=== PATIENT | male | born 1995 | race Caucasian/White ===

== ENCOUNTER 2024-04-13 10:43 | Outpatient (CLI) | payer OTHER, SELFPAY ==
--- NOTE | 2024-04-19 12:12 | WPDHOLTEREM ---
Holter/Event Monitor Holter/Event Monitor Date of procedure: 04/13/24 Holter/Event Procedure: 3-7 Day Holter Monitor Indications: Syncope Conclusion: 1. 3 days holter monitor on 04/13/24. 2. Underlying rhythm is sinus rhythm. HR range 46-162 bpm; average HR 80 bpm. HR at 46 bpm on 04/15/24 5:01 am. 3. There are rare premature supraventricular complexes, rare supraventricular couplets, and rare supraventricular triplets. No supraventricular tachycardia. 4. There are rare premature ventricular complexes. No ventricular tachycardia. 5. No significant pauses greater than 3 seconds. 6. No symptoms available for correlation.
== END 2024-04-13 10:44 | disposition home or self-care (01) ==
PROVIDERS: PCP Pediatrics; Visit Provider Family Medicine
DX: R55 Syncope and collapse (principal)
CPT/HCPCS: 93242

== ENCOUNTER 2024-04-25 22:52 | Observation (INO) | payer OTHER, SELFPAY ==
--- NOTE | ~2024-04-25 | XR_ITS ---
CHEST RADIOGRAPH CLINICAL HISTORY: chest pain/palps . COMPARISON: None available TECHNIQUE: Single portable view of the chest. FINDINGS The cardiomediastinal silhouette is unremarkable. The lungs are clear. Visualized osseous structures and soft tissues are unremarkable. IMPRESSION: No focal infiltrate or effusion. Reviewed, dictated and finalized at location A. NG CAR DRIVER
[2024-04-25 22:57] VITALS: BP 143/103; PULSE 60; RESP 18; TEMP 36.3; O2SAT 99
--- NOTE | 2024-04-25 22:57 | ECG_ITS ---
Test Date: 2024-04-25 23:05:12 Measurements Intervals [place] Rate: 179 P: 0 KS: 0 QRS: 51 QRSD: 83 T: 230 QT: 236 QTc: 408 Interpretive Statements ATRIAL FIBRILLATION WITH RAPID VENTRICULAR RESPONSE WITH ABERRANT CONDUCTION OR VENTRICULAR PREMATURE COMPLEXES ST-T WAVE ABNORMALITY IN DIFFUSE LEADS- CONSIDER ISCHEMIA OR RATE RELATED ABNORMAL ECG No previous ECG available for comparison Electronically Signed On 04-26-2024 06:14:43 COOLING MACHINE OPERATOR by Arnie Cabello D.O.
[2024-04-25 23:29] LABS: Basophils Percent Auto 0.4 % (0.2-1.2); Eosinophils Absolute Auto 0.1 K/mm3 (0-0.3); Eosinophils Percent Auto 1.3 % (0-4.4); Hematocrit 43.3 % (42.0-52.0); Hemoglobin 15.6 g/dL (14.0-18.0); Immature Granulocyte Absolute 0.01 K/mm3 (0.00-0.031); Immature Granulocyte Percent A 0.1 % (0-0.5); Lymphocytes Absolute Auto 2.72 K/mm3 (0.9-3.2); Lymphocytes Percent Auto 37.9 % (18.3-44.2); Mean Corpuscular Hemoglobin 32.1 pg (26-34); Mean Corpuscular Volume 89.1 fl (80-100); Mean Platelet Volume 9.1 fl (7.4-10.4); Monocytes Absolute Auto 0.5 K/mm3 (0.1-0.6); Neutrophils Absolute Auto 3.8 K/mm3 (1.3-6.7); Neutrophils Percent Auto 53.3 % (45.5-73.1); Platelet Count Result 260 k/mm3 (150-375); Red Blood Count 4.86 M/mm3 (4.6-6.20); Red Cell Distribution Width 11.5 % (11.5-14.5); White Blood Count 7.2 K/mm3 (4.5-10.0)
[2024-04-25 23:39] LABS: Alanine Aminotransferase 44 U/L (6-50); Alkaline Phosphatase 44 U/L (38-126); Anion Gap 12 mmol/L (4-12); Aspartate Amino Transferase 36 U/L (17-59); Bilirubin,Total 0.9 mg/dL (0.2-1.3); Blood Urea Nitrogen 17 mg/dL (9-20); Calcium 10.3 mg/dL (8.4-10.2); Carbon Dioxide 29 mmol/L (22-30); Chloride 103 mmol/L (98-107); Estimated CRCL calculation 124 ml/min; Estimated Glomerular Filt Rate > 60; Glucose 85 mg/dL (65-110); Lipase 88 U/L (23-300); Potassium 3.7 mmol/L (3.4-5.0); Sodium 144 mmol/L (137-145)
[2024-04-25 23:46] VITALS: BP 150/81; PULSE 200; RESP 28; O2SAT 100
[2024-04-25 23:49] VITALS: BP 133/95; PULSE 176; RESP 22; O2SAT 99
[2024-04-25] MEDS: ADENOSINE IV SOLN 6 MG/2 ML VIAL 12 MG IV PUSH ×2 (23:49→23:54)
[2024-04-25 23:51] LABS: Troponin I < 0.012 ng/mL (0.000-0.034)
[2024-04-25 23:54] VITALS: BP 141/97; PULSE 177; RESP 12; O2SAT 100
[2024-04-25] MEDS: dilTIAZem HCl INJ 25 MG/5 ML VIAL 30 MG IV PUSH (23:58)
[2024-04-25 23:59] LABS: INR 0.9; Partial Thromboplastin Time 24.5 Seconds (22.3-36.8); Prothrombin Time 12.1 Seconds (11.1-14.7)
[2024-04-26] VITALS (39 sets, daily range): BP systolic 112–152; BP diastolic 61–90; PULSE 59–147; RESP 13–23; TEMP 36.6; O2SAT 93–100
[2024-04-26] MEDS: SODIUM CHLORIDE 0.9% IV 1,000 ML 999 ML IV CONT
--- NOTE | 2024-04-26 | ECHO_ITS ---
Patient Info Name: Juan De Luna Age: 29 years : 1995 Gender: Male Ht: 72 in Wt: 276 lbs BSA: 2.57 m2 HR: 72 bpm BP: 130 / 73 mmHg Heart Rhythm: Sinus Rhythm Technical Quality: Good Exam Date: 04/26/2024 11:26 AM Exam Location: Echo Lab Exam Room: ER 14 Patient Status: Inpatient Admit Date: 04/26/2024 Staff Ordering Physician: Aminah Ha DO Registered Safety Engineer: Noelle Peañ RDCS Attending Provider: Azeb Darling APRN Referring Physician: Dilcia MONDRAGON; Exam Type: CA echo doppler color flow Study Info Indications - afib Complete two-dimensional, color flow and Doppler transthoracic echocardiogram is performed. Summary 1. Complete two-dimensional, color flow and Doppler transthoracic echocardiogram is performed. 2. There is normal biventricular size and systolic function. 3. There is normal biatrial size. 4. There is moderate pulmonary hypertension. Left Ventricle The left ventricle is normal in size and systolic function. The left ventricular ejection fraction is 60-65%. Right Ventricle The right ventricle is normal in size and systolic function. Left Atria The left atrium is normal size. Right Atria The right atrium is normal size. Atrial Septum The atrial septum visually appears intact. Aortic Valve The aortic valve is trileaflet and opens well. There is no aortic regurgitation. Pulmonic Valve The pulmonic valve is normal. There is trace pulmonic valve regurgitation. Mitral Valve The mitral valve leaflets are thin and pliable. There is no mitral regurgitation. Tricuspid Valve The tricuspid valve leaflets are thin and pliable. There is mild to moderate tricuspid regurgitation. There is moderate pulmonary hypertension. The PASP is estimated to be 60 mmHg. Pericardium/Pleural Pericardium is normal in appearance with no evidence for significant pericardial effusion. Inferior Vena Cava Normal inferior vena cava with <50% collapse upon inspiration consistent with elevated right atrial pressure, 8 mmHg. Normal inferior vena cava with <50% collapse upon inspiration consistent with elevated right atrial pressure, 8 mmHg. Aorta The aortic root measured at the level of the sinus of Valsalva is 3.5 cm in diameter. Left Ventricular Outflow Tract Name Value Normal LVOT 2D LVOT Diameter 2.5 cm LVOT Doppler LVOT Peak Velocity 110 cm/s LVOT Peak Gradient 5 mmHg LVOT Mean Gradient 3 mmHg LVOT VTI 22 cm LVOT VTI/AV VTI Ratio 0.8 LVOT Stroke Volume 105 ml LVOT CO 7.4 l/min LVOT CI 2.9 l/min/m2 Pulmonic Valve Name Value Normal PV Doppler PV Peak Velocity 87 cm/s PV Peak Gradient 3 mmHg PV Regurgitation Doppler NJ Peak End Diastolic Velocity 108 cm/s Mitral Valve Name Value Normal MV Doppler MV Peak Gradient 4 mmHg MV Mean Gradient 1 mmHg MV Decel Jewell 402 cm/s2 MV PHT 60 ms MV Area (PHT) 3.7 cm2 4.0-5.0 MV Area (Cont Eq VTI) 3.8 cm2 MV Diastolic Function MV E Peak Velocity 83 cm/s MV A Peak Velocity 42 cm/s MV E/A 2.0 MV Decel Time 206 ms MV Annular TDI MV Septal e' Velocity 14.7 cm/s >=8.0 MV E/e' (Septal) 5.6 <=8.0 MV Lateral e' Velocity 15.9 cm/s >=10.0 MV E/e' (Lateral) 5.2 <=8.0 MV e' Average 15.32 MV E/e' (Average) 5.4 Tricuspid Valve Name Value Normal TV Regurgitation Doppler TR Peak Velocity 359 cm/s TR Peak Gradient 52 mmHg Estimated PAP/RSVP RA Pressure 8 mmHg <=5 PA Systolic Pressure 60 mmHg <36 RV Systolic Pressure 60 mmHg <36 TV Annular TDI TV Lateral Cynthia s' Velocity 13.2 cm/s 9.5-18.7 Aortic Valve Name Value Normal AV Doppler AV Peak Velocity 125 cm/s AV Peak Gradient 6 mmHg AV Mean Gradient 4 mmHg AV VTI 26 cm AV Area (Cont Eq VTI) 4.0 cm2 >=3.0 AV Area (Cont Eq Darrel) 4.3 cm2 AV V1/V2 Ratio 0.88 AV Regurgitation 2D LVOT Area 4.8 cm2 Ventricles Name Value Normal LV Dimensions 2D/MM IVS Diastolic Thickness (2D) 0.7 cm 0.6-1.0 LVID Diastole (2D) 5.2 cm 4.2-5.8 LVIW Diastolic Thickness (2D) 0.8 cm 0.6-1.0 LVID Systole (2D) 3.4 cm 2.5-4.0 LVOT Diameter 2.5 cm LV Mass (2D Cubed) 135.75 g 88.00-224.00 LV Mass Index (2D Cubed) 53 g/m2 49-115 Relative Wall Thickness (2D) 0.31 LV Fractional Shortening/Ejection Fraction 2D/MM LV Fractional Shortening (2D) 36 % 25-43 LV EF (2D Teicholz) 65 % 52-72 LV Diastolic Volume (4C MOD) 178 ml LV EF (4C MOD) 58 % LV Diastolic Length (4C) 8.9 cm LV Systolic Length (4C) 7.7 cm LV Stroke Volume (4C MOD) 104 ml Atria Name Value Normal LA Dimensions LA Volume (4C A-L) 66 ml RA Dimensions RA Area (4C) 21.7 cm2 <=18.0 Report Signatures
[2024-04-26] MEDS: dilTIAZem HCl INJ 25 MG/5 ML VIAL 40 MG IV PUSH (00:05)
--- NOTE | 2024-04-26 00:18 | PC.NURSE ---
Patient was showing a heart rate of 180s-200s around 2340. At [address] Benjamín BURNS 6mg Adenosine IVP. No change in rhythm. At [address] Benjamín BURNS 12mg Adenosine IVP. No change in rhythm. At [address] Benjamín BURNS 12mg Adenosine IVP. Patient's rhythm slowing down to 160s-170s and showing more irregular. At [address] Benjamín BURNS 30mg Diltiazem IVP. No change in rhythm. At [address] Benjamín BURNS 40mg Ditiazem IVP. Patient rhythm now in the 80s-120 and still showing irregular.
--- NOTE | 2024-04-26 00:19 | ED.ARRPALP ---
HPI - Arrhythmia/Palpitations General Chief Complaint: Arrhythmia/Palpitations Stated Complaint: heart racing, sob, Time Seen by Provider: 04/25/24 23:12 Source: patient and family Mode of arrival: ambulatory Limitations: no limitations History of Present Illness HPI narrative: Patient states he has been experiencing his symptoms of palpitations for a while (a month and a half) and his primary care physician Yue Cline had him wear a Holter monitor and the results came through [facility] but reportedly normal. He had some marijuana at about 4pm. He was symptomatic prior to arrival but his [place] ring said his heart rate was in the 60s. Denies any other drug use. Initially denies that much caffeine but states he uses [place] energy additive in water and today had 2 cans of Coke and some iced tea. Also smokes/vapes. Related Data Allergies Allergy/AdvReac Type Severity Reaction Status Date / Time Penicillins Allergy Unknown Unknown Verified 04/25/24 22:53 [facility] Past Medical History Medical History Atrial fibrillation Hypothyroidism Hyperlipidemia Gout Family History Family History Grandparent Cerebrovascular accident Social History Social History (Updated 04/26/24 @ 21:43 by Joy Butts MD) Social History: Caffeine Smoking status: Current every day smoker Tobacco type: cigarettes and e-cigarettes/vaping Alcohol intake: current Alcohol use details: 1-2/day Other substance usage details: marijuana; denies other drugs Last use: 04/25/24 4pm Living arrangements: with family Additional living arrangements comments: and child Exam Narrative: GENERAL: Well-appearing, well-nourished HEAD: Normocephalic, atraumatic. EYES: Non injected, non icteric ENT: Nares clear, no rhinorrhea or epistaxis. NECK: Supple. CHEST: Speaking in full sentences. No respiratory distress. HEART: IRRegularly irregular rate and rhythm. ABDOMEN: Soft, nondistended. EXTREMITIES: Normal range of motion. No lower extremity edema. SKIN: Warm, dry, no rash. NEURO: No focal deficits. Alert and oriented x3. PSYCH: Normal mood and affect. Course Vital Signs Vital signs: Vital Signs Temperature 97.4 F L 04/25/24 22:57 Pulse Rate 60 04/25/24 22:57 Respiratory Rate 18 04/25/24 22:57 Blood Pressure 143/103 H 04/25/24 22:57 Pulse Oximetry 99 04/25/24 22:57 Oxygen Delivery Room Air 04/25/24 22:57 Temperature 98 F 04/26/24 16:37 Pulse Rate 65 04/26/24 17:16 Respiratory Rate 16 04/26/24 17:16 Blood Pressure 131/89 04/26/24 17:16 Pulse Oximetry 99 04/26/24 17:16 Oxygen Delivery Room Air 04/25/24 22:57 MDM - Arrhythmia/Palpitations MDM Narrative Medical decision making narrative: Patient presents with palpitations. In the emergency department he is afebrile with signs notable for hypertension. Heart rate initially 60 but at the time of EKG, it is in the 170s. Blood pressure appropriate, not diaphoretic. Symptomatic but elevated blood pressure and not hypoxic. Brought back to ED room as a medical resuscitation. Given age, also considered SVT with some aberrant conductions versus orthodromic AVRT. There is QRS alternans. ACLS/intubation/advanced airway materials were ready and available at bedside as needed. Attempted Valsalva maneuver, modified Valsalva maneuver. patient remains hemodynamically stable however persistently that the heart rate between 160 and at times 200 Attempted adenosine initially at 6 mg followed by 12 mg an additional 12 mg after that with no pause /response. Rate of EKG strip is changed to 50mm/s which does confirm atrial fibrillation. He uses marijuana and drinks alcohol and smokes/vapes but denies other illicit drugs. Considered possible thyroid dysfunction or PE. Gave diltiazem 0.25mg/kg which showed minimal change. Then gave diltiazem 0.35mg/kg which improved rate but remained in the 120-140s. Persistent Afib but hemodynamically stable so diltiazem infusion started. This has him better rate controlled, usually less than 110 but at times he does break through and have a heart rate in the 120s or at times 130s. TSH high but free T4 normal, likely subclinical hypothyroidism (or receovery from euthyroid sick syndrome). Patient will require admission. He is amenable. Discussed with trade economist hospitalist Dr Ha. Will be IMU. === Critical Care: 1 or more organ systems at risk of decompensation/deterioration. Time spent includes interpreting EKG and studies, reassessing, ordering medications and observing response, obtaining info from patient and family, discussing with hospitalist team. Time spend independent of separately billable procedures. Differential Diagnosis Differential diagnosis: Likely palpitations, anxiety, sinus tachycardia, artial fibrillation, artial flutter, ventricular premature beats, supraventricular tachycardia, ventricular tachycardia, WPW and other Lab Data Attestation: I reviewed the patient's lab results. 04/26/24 13:26 04/26/24 13:26 Labs: Lab Results 04/25/24 04/26/24 Range/Units 23:22 01:38 WBC 7.2 (4.5-10.0) K/mm3 RBC 4.86 (4.6-6.20) M/mm3 Hgb 15.6 (14.0-18.0) g/dL Hct 43.3 (42.0-52.0) % MCV 89.1 (80-100) fl MCH 32.1 (26-34) pg MCHC 36.0 (32-36) g/dl RDW 11.5 (11.5-14.5) % Plt Count 260 (150-375) k/mm3 MPV 9.1 (7.4-10.4) fl Immature Gran % (Auto) 0.1 (0-0.5) % Neut % (Auto) 53.3 (45.5-73.1) % Lymph % (Auto) 37.9 (18.3-44.2) % Kinney % (Auto) 7.0 (2.6-8.5) % Eos % (Auto) 1.3 (0-4.4) % Baso % (Auto) 0.4 (0.2-1.2) % Lymph # (Auto) 2.72 (0.9-3.2) K/mm3 Kinney # (Auto) 0.5 (0.1-0.6) K/mm3 Eos # (Auto) 0.1 (0-0.3) K/mm3 Baso # (Auto) 0.0 (0.0-0.1) K/mm3 Abs Immat Gran (auto) 0.01 (0.00-0.031) K/mm3 Absolute Neuts (auto) 3.8 (1.3-6.7) K/mm3 Absolute Nucleated RBC 0.000 (0.0-0.012) K/mm3 Nucleated RBC % 0.0 (0.0-0.2) % PT 12.1 (11.1-14.7) Seconds INR 0.9 APTT 24.5 (22.3-36.8) Seconds D-Dimer < 0.27 (<0.48) ug/mL Sodium 144 (137-145) mmol/L Potassium 3.7 (3.4-5.0) mmol/L Chloride 103 (98-107) mmol/L Carbon Dioxide 29 (22-30) mmol/L Anion Gap 12 (4-12) mmol/L BUN 17 (9-20) mg/dL Creatinine 1.09 (0.7-1.3) mg/dL Estim Creat Clear Calc 124 ml/min Estimated GFR > 60 (59 - ) Glucose 85 (65-110) mg/dL Calcium 10.3 H (8.4-10.2) mg/dL Total Bilirubin 0.9 (0.2-1.3) mg/dL AST 36 (17-59) U/L ALT 44 (6-50) U/L Alkaline Phosphatase 44 (38-126) U/L Troponin I < 0.012 < 0.012 (0.000-0.034) ng/mL Total Protein 8.0 (6.3-8.2) g/dL Albumin 5.0 (3.5-5.1) g/dL Lipase 88 (23-300) U/L TSH 12.700 H (0.465-4.680) uIU/mL Thyroxine (T4) 9.37 (5.53-11.0) ug/dL Imaging Data Attestation: I personally reviewed and interpreted this imaging study as follows: My impression: No acute process on my independent interpretation Radiologist's impression: MPRESSION: No focal infiltrate or effusion. ECG Data EKG #1: Attestation: I personally reviewed and interpreted this ECG as follows: ECG completion date: 04/25/24 ECG completion time: 23:05 Interpretation: Irregularly irregular rhythm at a rate of 179 beats per minute. QRS 83 milliseconds (normal/narrow). QT QTC 236/331. there T-wave inversion a throughout inferior veins us why as precordial leads V3 through V6. also questionable depressions although there is some baseline wander which limits full interpretation. EKG #2: Attestation: I personally reviewed and interpreted this ECG as follows: ECG completion date: 04/25/24 ECG completion time: 23:57 Interpretation: atrial fibrillation with rapid ventricular response at a rate of 176 beats per minute. QRS 81. QT/ QTC 235/329. Good R-wave progression across the precordial leads. T-wave inversions in the inferior leads. T-wave inversions across precordial leads V3 through V6. Critical Care Time Critical Care Time Critical Care Time: Yes Total Critical Care Time: 40 Discharge Plan Discharge Clinical Impression: Atrial fibrillation, Marijuana use Patient Disposition: Still a Patient Condition: Stable
[2024-04-26] MEDS: ADENOSINE IV SOLN 6 MG/2 ML VIAL IV PUSH (00:26)
[2024-04-26 00:27] LABS: D Dimer < 0.27 ug/mL (<0.48)
[2024-04-26] MEDS: dilTIAZem 100 MG/100 ML 100 MG/100 ML BAG IV CONT (00:29)
[2024-04-26 02:06] LABS: Troponin I < 0.012 ng/mL (0.000-0.034)
[2024-04-26 02:38] LABS: Amphetamine Screen Urine Negative (Negative); Barbiturate Screen Urine Negative (Negative); Benzodiazepines Screen Urine Negative (Negative); Cannabinoid Screen Urine Positive (Negative); Cocaine Screen Urine Negative (Negative); Methadone Screen Urine Negative (Negative); Opiate Screen Urine Negative (Negative); Phencyclidine Screen Urine Negative (Negative)
[2024-04-26 02:45] LABS: T4 Thyroxine 9.37 ug/dL (5.53-11.0)
--- NOTE | 2024-04-26 04:33 | PC.NURSE ---
EDP aware of patient's heart rate and maximum dose of Diltiazem.
[2024-04-26 06:30] LABS: Troponin I 0.013 ng/mL (0.000-0.034)
[2024-04-26] MEDS: AMIODARONE 150 MG/D5W 100 ML 150 MG/100 ML BAG 600 MG IV CONT (08:51)
--- NOTE | 2024-04-26 08:52 | P.HP_ITS ---
H&P: HPI History of Present Illness Date/Time: 04/26/24 08:52 Chief Complaint: palpitations Narrative: This is a 29-year-old male with a significant past medical history of gout, hyperlipidemia who presented to the hospital with palpitations. Patient states that he has been having off and on palpitations for quite some time and had a Holter monitor placed last month which did not show any atrial fibrillation. He did not follow-up with Dr. Cabello after the Holter monitor reading. He denies any family history of AFib that he is aware of. Patient states that with the palpitations he does get lightheaded and short of breath with occasional nausea. He denies any fever, chills, nausea, vomiting, diarrhea, abdominal pain, chest pain, shortness a breath currently. He denies any sick contacts. Workup in the hospital included a chest x-ray which was negative for any acute infiltrate or effusion. Initial labs showed a normal white blood cell count of 7.2, calcium 10.3, troponin flat x3, TSH 12.700, thyroxine 9.37. Urine drug screen was positive for cannabinoids. Respiratory panel was negative for influenza a and B, RSV, COVID. EKG initially showing AFib with RVR with a rate of 176, QTC 403. He was started on Cardizem infusion which was maxed out. We switched patient to Amiodarone bolus with infusion. Patient converted. Repeat EKG shown NSR with rate of 68, QTc 394. He had an echo while inpatient which showed normal LV systolic function with an estimated EF of 60-65%, there was moderate pulmonary hypertension noted. Cardiology seen patient and started him on Metoprolol 25 mg BID for rate control. He does not have to take anticoagulation medication at this time as his risk for stroke is low per GLENN score. Review of Systems Review of Systems: All systems reviewed & are unremarkable except as noted in HPI and below [facility] Past Medical History Medical History Atrial fibrillation Hypothyroidism Hyperlipidemia Gout Family History Family History Grandparent Cerebrovascular accident Social History Social History Smoking status: Current every day smoker Tobacco type: cigarettes and e-cigarettes/vaping Alcohol intake: current Alcohol use details: 1-2/day Other substance usage details: marijuana; denies other drugs Last use: 04/25/24 4pm Living arrangements: with family Additional living arrangements comments: and child Meds Home Medications and Allergies Home Medications ?Medication ?Instructions ?Recorded ?Confirmed ?Type levothyroxine 100 mcg tablet 200 mcg (2 x 100 mcg) PO 04/26/24 Rx (Synthroid) DAILY@0630 #30 tabs metoprolol tartrate 25 mg tablet 25 mg PO Q12HR #60 tabs 04/26/24 Rx Allergies Allergy/AdvReac Type Severity Reaction Status Date / Time Penicillins Allergy Unknown Unknown Verified 04/25/24 22:53 Vital Signs Vital Signs - 24 hr 04/25/24 22:57 04/25/24 23:46 04/25/24 23:49 Temperature 97.4 F L Pulse Rate 60 200 H 176 H Respiratory Rate 18 28 H 22 H Blood Pressure 143/103 H 150/81 H 133/95 H Pulse Oximetry 99 100 99 Oxygen Delivery Room Air 04/25/24 23:54 04/26/24 00:05 04/26/24 00:29 Temperature Pulse Rate 177 H 142 H 117 H Respiratory Rate 12 14 Blood Pressure 141/97 H 128/74 128/77 Pulse Oximetry 100 99 Oxygen Delivery 04/26/24 01:12 04/26/24 02:07 04/26/24 02:07 Temperature Pulse Rate 116 H 117 H 117 H Respiratory Rate 19 Blood Pressure 112/78 134/66 136/76 Pulse Oximetry 100 Oxygen Delivery 04/26/24 04:17 04/26/24 05:14 04/26/24 07:10 Temperature Pulse Rate 132 H 127 H 121 H Respiratory Rate 16 16 18 Blood Pressure 142/88 H 138/70 Pulse Oximetry 100 100 99 Oxygen Delivery 04/26/24 07:15 04/26/24 07:15 04/26/24 07:16 Temperature Pulse Rate 147 H 126 H 137 H Respiratory Rate 19 15 16 Blood Pressure 120/85 120/85 Pulse Oximetry 100 99 Oxygen Delivery 04/26/24 07:17 04/26/24 07:30 04/26/24 07:31 Temperature Pulse Rate 131 H 105 H 120 H Respiratory Rate 13 23 H Blood Pressure 120/85 112/61 Pulse Oximetry 93 Oxygen Delivery 04/26/24 07:45 04/26/24 07:46 04/26/24 08:00 Temperature Pulse Rate 131 H 133 H 118 H Respiratory Rate 13 20 15 Blood Pressure 115/78 Pulse Oximetry 97 95 98 Oxygen Delivery 04/26/24 08:01 Temperature Pulse Rate 132 H Respiratory Rate 16 Blood Pressure 152/62 H Pulse Oximetry 96 Oxygen Delivery Exam Narrative: General: In no acute distress, well nourished Head: atraumatic, no encephalopathy Eyes: PERRLA, sclera clear ENT: moist mucous membranes, nasal passages clear Neck: supple, no JVD, no adenopathy, trachea midline Cardiac: Normal S1 and S2. Currently in normal sinus rhythm at the time of my assessment, No murmur, gallops or friction rubs, peripheral pulses intact. Respiratory: Lungs clear to auscultation, no adventitious lung sounds, currently on room air Gastrointestinal: soft, non-distended, non-tender, normoactive bowel sounds. : voiding without difficulty. Extremities: moves all extremities well, no edema, good ROM, strength 5/5 Skin: clean, dry, intact. No wounds or lesions. Neuro: Alert and oriented x4, cranial nerves intact, no neuro deficits. Psych: normal mood, normal affect, interactive H&P: Results Labs Labs: Short CBC 04/25/24 Range/Units 23:22 WBC 7.2 (4.5-10.0) K/mm3 Hgb 15.6 (14.0-18.0) g/dL Hct 43.3 (42.0-52.0) % Plt Count 260 (150-375) k/mm3 BMP 04/25/24 23:22 Sodium 144 Potassium 3.7 Chloride 103 Carbon Dioxide 29 BUN 17 Creatinine 1.09 Glucose 85 Calcium 10.3 H Cardiac Enzymes 04/25/24 04/26/24 04/26/24 Range/Units 23:22 01:38 05:46 Troponin I < 0.012 < 0.012 0.013 (0.000-0.034) ng/mL Liver Function 04/25/24 Range/Units 23:22 Total Bilirubin 0.9 (0.2-1.3) mg/dL AST 36 (17-59) U/L ALT 44 (6-50) U/L Alkaline Phosphatase 44 (38-126) U/L Albumin 5.0 (3.5-5.1) g/dL Imaging Chest x-ray: Radiologist's impression: CHEST RADIOGRAPH CLINICAL HISTORY: chest pain/palps . COMPARISON: None available TECHNIQUE: Single portable view of the chest. FINDINGS The cardiomediastinal silhouette is unremarkable. The lungs are clear. Visualized osseous structures and soft tissues are unremarkable. IMPRESSION: No focal infiltrate or effusion. Reviewed, dictated and finalized at location A. HER OF THE HEARING IMPAIRED Assessment and Plan Assessment and plan (1) Atrial fibrillation: Code(s): I48.91 - Unspecified atrial fibrillation Status: Acute Assessment and Plan: * Patient was initially started on Cardizem infusion and then transition to amiodarone bolus with infusion * Patient cardioverted on the amiodarone to normal sinus rhythm * Cardiology consulted and started metoprolol * Cardiology not recommending long-term anticoagulation at this time due to his age and CHADsVasc score of 0 * Encourage smoking cessation and limiting alcohol intake * Will continue with medical management * Patient weaned off amiodarone infusion * He will likely need a sleep study on an outpatient basis to assess for JASON (2) Hypothyroidism: Code(s): E03.9 - Hypothyroidism, unspecified Status: Acute Assessment and Plan: * TSH 12.700, T4 9.37 * Patient started on Synthroid 200 mcg daily * Will need to follow up with primary care physician Quality VTE Prophylaxis VTE prophylaxis: pharmacologic ordered Hospitalist [facility] Advance Care Plan I have confirmed that the patient's Advanced Care Plan is present, code status is documented, or surrogate decision maker is listed in patient medical record.: Yes Medication Reconciliation I have utilized all available resources to obtain, update and review the patients current medications (includes all prescriptions, OTC, herbals, cannabis, and nutritional supplements).: Yes
[2024-04-26] MEDS: AMIODARONE 360 MG/D5W 200 ML 360 MG/200 ML BAG 33.33 MG IV CONT (09:03)
--- NOTE | 2024-04-26 09:18 | ECG_ITS ---
Test Date: 2024-04-25 23:57:54 Measurements Intervals [place] Rate: 176 P: 0 PA: 0 QRS: 52 QRSD: 81 T: 235 QT: 235 QTc: 403 Interpretive Statements ATRIAL FIBRILLATION WITH RAPID VENTRICULAR RESPONSE EARLY PRECORDIAL R/S TRANSITION ST DEVIATION AND MODERATE T-WAVE ABNORMALITY, CONSIDER ANTEROLATERAL ISCHEMIA ST DEVIATION AND MODERATE T-WAVE ABNORMALITY, CONSIDER INFERIOR ISCHEMIA BASELINE ARTIFACT- I, II, AVR, AVL, AVF ABNORMAL ECG Compared to ECG 04/25/2024 23:05:12 NO SIGNIFICANT CHANGE Electronically Signed On 04-26-2024 09:58:16 ECONOMICS PROFESSOR by Arnie Cabello D.O.
--- NOTE | 2024-04-26 09:43 | PC.NURSE ---
Cardizem stopped as ordered. HR 70's, NSR.
--- NOTE | 2024-04-26 09:45 | ECG_ITS ---
Test Date: 2024-04-26 09:48:23 Measurements Intervals [place] Rate: 68 P: 27 OK: 140 QRS: 46 QRSD: 86 T: 16 QT: 369 QTc: 394 Interpretive Statements SINUS RHYTHM EARLY PRECORDIAL R/S TRANSITION NONSPECIFIC T-WAVE ABNORMALITY- ANTEROLAT/INF LEADS BORDERLINE ECG Compared to ECG 04/25/2024 23:57:54 Atrial fibrillation no longer present Possible ischemia no longer present T-wave abnormality still present Electronically Signed On 04-26-2024 09:56:59 REPAIR OPERATOR by Arnie Cabello D.O.
[2024-04-26] MEDS: APIXABAN 5 MG TABLET PO (09:52)
--- NOTE | 2024-04-26 11:38 | P.CONCA_ITS ---
Assessment and Plan Assessment and plan (1) Atrial fibrillation: Code(s): I48.91 - Unspecified atrial fibrillation Status: Acute Plan 29-year-old man with no significant past medical history presents with palpitations Paroxysmal atrial fibrillation -start lopressor 25mg PO BID -CHADsVASC 0 without strong indications for senior care anticoagulation -patient has underlying hypothyroidism with TSH of >10 and given his afib, unlikely subclinical and would treat -we have discussed tobacco cessation as well as decreasing alcohol intake -we have discussed symptoms and clinical indications for ablation -at this time, we agree to proceed for with medical management and outpatient follow-up as well as management of hypothyroidism patient can be discharged from cardiac perspective to follow up with me in clinic. History of Present Illness History of Present Illness Consult date/time: 04/26/24 11:38 Requesting physician: Azeb Darling APRN Reason For Visit: New onset afib Narrative: 29-year-old man with no significant past medical history presents with palpitations. Last evening the palpitations significantly worsened causing significant discomfort prompting the patient to come to the emergency room for further evaluation. Other than the palpitations, he has no other symptoms of chest discomfort shortness of breath. Denies any syncopal events. He is physically active with his work and does some 20 pushups almost every day. He has not noted any cardiopulmonary limitations to his level of activities. He received amiodarone intravenously in the emergency room and had converted to sinus rhythm. He is feeling very well without any palpitations while in sinus rhythm. Review of Systems 2 Cardiovascular: Cardiovascular: Reports as per HPI Respiratory: Respiratory: Reports as per HPI [facility] Family History Family History Grandparent Cerebrovascular accident Social History Social History Smoking status: Current every day smoker Tobacco type: cigarettes and e-cigarettes/vaping Alcohol intake: current Alcohol use details: 1-2/day Other substance usage details: marijuana; denies other drugs Last use: 04/25/24 4pm Living arrangements: with family Additional living arrangements comments: and child Meds Home Medications and Allergies Allergies Allergy/AdvReac Type Severity Reaction Status Date / Time Penicillins Allergy Unknown Unknown Verified 04/25/24 22:53 Vital Signs Vital Signs - 24 hr 04/25/24 22:57 04/25/24 23:46 04/25/24 23:49 Temperature 36.3 C L Pulse Rate 60 200 H 176 H Respiratory Rate 18 28 H 22 H Blood Pressure 143/103 H 150/81 H 133/95 H Pulse Oximetry 99 100 99 Oxygen Delivery Room Air 04/25/24 23:54 04/26/24 00:05 04/26/24 00:29 Temperature Pulse Rate 177 H 142 H 117 H Respiratory Rate 12 14 Blood Pressure 141/97 H 128/74 128/77 Pulse Oximetry 100 99 Oxygen Delivery 04/26/24 01:12 04/26/24 02:07 04/26/24 02:07 Temperature Pulse Rate 116 H 117 H 117 H Respiratory Rate 19 Blood Pressure 112/78 134/66 136/76 Pulse Oximetry 100 Oxygen Delivery 04/26/24 04:17 04/26/24 05:14 04/26/24 07:10 Temperature Pulse Rate 132 H 127 H 121 H Respiratory Rate 16 16 18 Blood Pressure 142/88 H 138/70 Pulse Oximetry 100 100 99 Oxygen Delivery 04/26/24 07:15 04/26/24 07:15 04/26/24 07:16 Temperature Pulse Rate 147 H 126 H 137 H Respiratory Rate 19 15 16 Blood Pressure 120/85 120/85 Pulse Oximetry 100 99 Oxygen Delivery 04/26/24 07:17 04/26/24 07:30 04/26/24 07:30 Temperature Pulse Rate 131 H 105 H 146 H Respiratory Rate 13 Blood Pressure 120/85 Pulse Oximetry Oxygen Delivery 04/26/24 07:31 04/26/24 07:45 04/26/24 07:46 Temperature Pulse Rate 120 H 131 H 133 H Respiratory Rate 23 H 13 20 Blood Pressure 112/61 115/78 Pulse Oximetry 93 97 95 Oxygen Delivery 04/26/24 08:00 04/26/24 08:01 04/26/24 08:51 Temperature Pulse Rate 118 H 132 H 117 H Respiratory Rate 15 16 Blood Pressure 152/62 H 134/77 Pulse Oximetry 98 96 Oxygen Delivery 04/26/24 08:53 04/26/24 09:02 04/26/24 09:03 Temperature Pulse Rate 121 H 106 H 93 Respiratory Rate Blood Pressure 134/77 129/82 129/82 Pulse Oximetry Oxygen Delivery 04/26/24 09:09 04/26/24 09:42 04/26/24 10:26 Temperature Pulse Rate 106 H 76 71 Respiratory Rate Blood Pressure 129/82 130/73 Pulse Oximetry Oxygen Delivery Exam 2 Const: General: comfortable HENMT: Mouth: Yes dry mucous membranes Eyes: EOM: EOMs intact bilaterally Neck: Neck: no JVD Resp: Effort & Inspection: normal respiratory effort Auscultation: clear to auscultation bilaterally Cardio: Rate: regular rate Rhythm: regular rhythm Heart sounds: no gallops, no murmurs and no rubs Neuro: Speech: normal speech Motor exam (neuro): Abnormal motor strength present Sensory Exam: normal sensation Extrem: General: no edema and no pedal edema Results Labs and Meds 04/25/24 23:22 04/25/24 23:22 Lab results: Cardiac Enzymes 04/25/24 04/26/24 04/26/24 Range/Units 23:22 01:38 05:46 AST 36 (17-59) U/L Troponin I < 0.012 < 0.012 0.013 (0.000-0.034) ng/mL Coagulation 04/25/24 Range/Units 23:22 PT 12.1 (11.1-14.7) Seconds APTT 24.5 (22.3-36.8) Seconds CBC 04/25/24 Range/Units 23:22 WBC 7.2 (4.5-10.0) K/mm3 RBC 4.86 (4.6-6.20) M/mm3 Hgb 15.6 (14.0-18.0) g/dL Hct 43.3 (42.0-52.0) % Plt Count 260 (150-375) k/mm3 Lymph # (Auto) 2.72 (0.9-3.2) K/mm3 [place] # (Auto) 0.5 (0.1-0.6) K/mm3 Eos # (Auto) 0.1 (0-0.3) K/mm3 Baso # (Auto) 0.0 (0.0-0.1) K/mm3 Comprehensive Metabolic Panel 04/25/24 Range/Units 23:22 Sodium 144 (137-145) mmol/L Potassium 3.7 (3.4-5.0) mmol/L Chloride 103 (98-107) mmol/L Carbon Dioxide 29 (22-30) mmol/L BUN 17 (9-20) mg/dL Creatinine 1.09 (0.7-1.3) mg/dL Glucose 85 (65-110) mg/dL Calcium 10.3 H (8.4-10.2) mg/dL AST 36 (17-59) U/L ALT 44 (6-50) U/L Alkaline Phosphatase 44 (38-126) U/L Total Protein 8.0 (6.3-8.2) g/dL Albumin 5.0 (3.5-5.1) g/dL Intake and Output 04/25/24 04/26/24 04/26/24 23:59 07:59 15:59 Intake Total 1090.3 109.7 Output Total 900 Balance 1090.3 -790.3 Intake: IV 1090.3 109.7 Amiodarone 150 mg/D5w 100 ml 100 150 mg In 100 ml @ 15 MG/MIN 600 mls/hr IV CONT .Q10M ONE Rx #:[id number] Sodium Chloride 0.9% IV 1,000 1000 ml @ 999 mls/hr IV CONT .Q1H1M STA Rx#:[id number] dilTIAZem 100 MG/100 ML 100 mg 90.3 9.7 In 100 ml @ 5 MG/HR 5 mls/hr IV CONT .Q20H STA Rx#:[id number] Output: Urine 900
--- NOTE | 2024-04-26 12:10 | PC.NURSE ---
Attempted to call Azeb Darling regarding orders at 1210 with no answer. unable to leave message.
--- NOTE | 2024-04-26 13:10 | PC.NURSE ---
Spoke with Azeb Darling about orders who says to continue the amiodarone as originally ordered and f/u with Ko.
--- NOTE | 2024-04-26 13:11 | PC.NURSE ---
Called pharmacy about missing synthroid
[2024-04-26] MEDS: LEVOTHYROXINE SODIUM 100 MCG, LEVOTHYROXINE SODIUM 75 MCG 175 MCG PO (13:23)
[2024-04-26 13:34] LABS: Basophils Percent Auto 0.1 % (0.2-1.2); Eosinophils Percent Auto 0.2 % (0-4.4); Hematocrit 42.6 % (42.0-52.0); Hemoglobin 15.2 g/dL (14.0-18.0); Immature Granulocyte Absolute 0.03 K/mm3 (0.00-0.031); Immature Granulocyte Percent A 0.3 % (0-0.5); Lymphocytes Absolute Auto 1.96 K/mm3 (0.9-3.2); Lymphocytes Percent Auto 21.3 % (18.3-44.2); Mean Corpuscular HGB Conc 35.7 g/dl (32-36); Mean Corpuscular Hemoglobin 32.1 pg (26-34); Mean Corpuscular Volume 89.9 fl (80-100); Mean Platelet Volume 9.4 fl (7.4-10.4); Monocytes Absolute Auto 0.5 K/mm3 (0.1-0.6); Monocytes Percent Auto 5.3 % (2.6-8.5); Neutrophils Absolute Auto 6.7 K/mm3 (1.3-6.7); Neutrophils Percent Auto 72.8 % (45.5-73.1); Platelet Count Result 257 k/mm3 (150-375); Red Blood Count 4.74 M/mm3 (4.6-6.20); Red Cell Distribution Width 11.8 % (11.5-14.5); White Blood Count 9.2 K/mm3 (4.5-10.0)
[2024-04-26 13:54] LABS: Alanine Aminotransferase 42 U/L (6-50); Albumin Level 4.8 g/dL (3.5-5.1); Alkaline Phosphatase 30 U/L (38-126); Anion Gap 10 mmol/L (4-12); Aspartate Amino Transferase 33 U/L (17-59); Bilirubin,Total 0.9 mg/dL (0.2-1.3); Blood Urea Nitrogen 13 mg/dL (9-20); Calcium 9.5 mg/dL (8.4-10.2); Carbon Dioxide 28 mmol/L (22-30); Chloride 104 mmol/L (98-107); Estimated CRCL calculation 151 ml/min; Estimated Glomerular Filt Rate > 60; Glucose 95 mg/dL (65-110); Potassium 4.5 mmol/L (3.4-5.0); Sodium 142 mmol/L (137-145)
[2024-04-26 14:44] LABS: Influenza A QL RT-PCR Negative (Negative); Influenza B QL RT-PCR Negative (Negative); RSV RNA, RT-PCR Negative (Negative); SARS-CoV-2 RNA PCR Negative (Negative)
[2024-04-26] MEDS: AMIODARONE 360 MG/D5W 200 ML 360 MG/200 ML BAG 16.67 MG IV CONT (15:05)
--- NOTE | 2024-04-26 15:37 | PC.NURSE ---
Azeb NG to change metoprolol administration to 1515 today instead of scheduled 2100.
[2024-04-26] MEDS: METOPROLOL TARTRATE 25 MG TABLET PO (15:41)
--- NOTE | 2024-04-26 16:39 | PC.NURSE ---
Amiodarone stopped per Azeb NG to pause admiodarone 45 min after metoprolol administration. HR still controlled.
--- NOTE | 2024-04-26 18:33 | P.DS_ITS ---
DS: Admitting Diagnosis Discharge Date 04/26/24 Admitting Diagnosis Atrial fibrillation hypothyroidism DS: Summary Hospital Course Reason for hospitalization: Atrial fibrillation hypothyroidism Hospital Course: This is a 29-year-old male with a significant past medical history of gout, hyperlipidemia who presented to the hospital with palpitations. Patient states that he has been having off and on palpitations for quite some time and had a Holter monitor placed last month which did not show any atrial fibrillation. He did not follow-up with Dr. Cabello after the Holter monitor reading. He denies any family history of AFib that he is aware of. Patient states that with the palpitations he does get lightheaded and short of breath with occasional nausea. He denies any fever, chills, nausea, vomiting, diarrhea, abdominal pain, chest pain, shortness a breath currently. He denies any sick contacts. Workup in the hospital included a chest x-ray which was negative for any acute infiltrate or effusion. Initial labs showed a normal white blood cell count of 7.2, calcium 10.3, troponin flat x3, TSH 12.700, thyroxine 9.37. Urine drug screen was positive for cannabinoids. Respiratory panel was negative for influenza a and B, RSV, COVID. EKG initially showing AFib with RVR with a rate of 176, QTC 403. He was started on Cardizem infusion which was maxed out. We switched patient to Amiodarone bolus with infusion. Patient converted. Repeat EKG shown NSR with rate of 68, QTc 394. He had an echo while inpatient which showed normal LV systolic function with an estimated EF of 60-65%, there was moderate pulmonary hypertension noted. Cardiology seen patient and started him on Metoprolol 25 mg BID for rate control. He does not have to take anticoagulation medication at this time as his risk for stroke is low per GLENN score. Patient is stable for discharge at this time. He was sent home with prescription for Synthroid and M etoprolol. He was also given a list for new primary care doctors. He will need to follow up with his PCP in 1 week and Cardiology in 3 weeks. Final diagnosis: Atrial fibrillation, hypothyroidism Status at Discharge Cognitive/behavioral status at discharge: Alert oriented x4 Functional status at discharge: independent ambulation Overall status at discharge: patient is progressing back to baseline Time Spent with Patient Time attestation: Total time spent providing and/or coordinating discharge services: Time spent: Greater than 30 minutes Exam Narrative: General: In no acute distress, well nourished Head: atraumatic, no encephalopathy Eyes: PERRLA, sclera clear ENT: moist mucous membranes, nasal passages clear Neck: supple, no JVD, no adenopathy, trachea midline Cardiac: Normal S1 and S2. Currently in normal sinus rhythm at the time of my assessment, No murmur, gallops or friction rubs, peripheral pulses intact. Respiratory: Lungs clear to auscultation, no adventitious lung sounds, currently on room air Gastrointestinal: soft, non-distended, non-tender, normoactive bowel sounds. : voiding without difficulty. Extremities: moves all extremities well, no edema, good ROM, strength 5/5 Skin: clean, dry, intact. No wounds or lesions. Neuro: Alert and oriented x4, cranial nerves intact, no neuro deficits. Psych: normal mood, normal affect, interactive DS: Data Data Completed and Pending Completed studies during hospitalization: Chest x-ray Pending studies at discharge: None Labs on day of discharge: Labs from last 24 hours 04/26/24 04/26/24 04/26/24 13:26 13:03 05:46 WBC 9.2 RBC 4.74 Hgb 15.2 Hct 42.6 MCV 89.9 MCH 32.1 MCHC 35.7 RDW 11.8 Plt Count 257 MPV 9.4 Immature Gran % (Auto) 0.3 Neut % (Auto) 72.8 Lymph % (Auto) 21.3 [place] % (Auto) 5.3 Eos % (Auto) 0.2 Baso % (Auto) 0.1 L Lymph # (Auto) 1.96 [place] # (Auto) 0.5 Eos # (Auto) 0.0 Baso # (Auto) 0.0 Abs Immat Gran (auto) 0.03 Absolute Neuts (auto) 6.7 Absolute Nucleated RBC 0.000 Nucleated RBC % 0.0 PT INR APTT D-Dimer Sodium 142 Potassium 4.5 Chloride 104 Carbon Dioxide 28 Anion Gap 10 BUN 13 Creatinine 0.87 Estim Creat Clear Calc 151 Estimated GFR > 60 Glucose 95 Calcium 9.5 Magnesium 2.0 Total Bilirubin 0.9 AST 33 ALT 42 Alkaline Phosphatase 30 L Troponin I 0.013 Total Protein 8.0 Albumin 4.8 Lipase TSH Thyroxine (T4) Urine Opiates Screen Urine Methadone Screen Ur Barbiturates Screen Ur Phencyclidine Scrn Ur Amphetamine Screen U Benzodiazepines Scrn Urine Cocaine Screen U Cannabinoids Screen Influenza A (RT-PCR) Negative Influenza B (RT-PCR) Negative RSV (RT-PCR) Negative SARS-CoV-2 RNA (RT-PCR) Negative 04/26/24 04/26/24 04/25/24 02:14 01:38 23:22 WBC 7.2 RBC 4.86 Hgb 15.6 Hct 43.3 MCV 89.1 MCH 32.1 MCHC 36.0 RDW 11.5 Plt Count 260 MPV 9.1 Immature Gran % (Auto) 0.1 Neut % (Auto) 53.3 Lymph % (Auto) 37.9 [place] % (Auto) 7.0 Eos % (Auto) 1.3 Baso % (Auto) 0.4 Lymph # (Auto) 2.72 [place] # (Auto) 0.5 Eos # (Auto) 0.1 Baso # (Auto) 0.0 Abs Immat Gran (auto) 0.01 Absolute Neuts (auto) 3.8 Absolute Nucleated RBC 0.000 Nucleated RBC % 0.0 PT 12.1 INR 0.9 APTT 24.5 D-Dimer < 0.27 Sodium 144 Potassium 3.7 Chloride 103 Carbon Dioxide 29 Anion Gap 12 BUN 17 Creatinine 1.09 Estim Creat Clear Calc 124 Estimated GFR > 60 Glucose 85 Calcium 10.3 H Magnesium Total Bilirubin 0.9 AST 36 ALT 44 Alkaline Phosphatase 44 Troponin I < 0.012 < 0.012 Total Protein 8.0 Albumin 5.0 Lipase 88 TSH 12.700 H Thyroxine (T4) 9.37 Urine Opiates Screen Negative Urine Methadone Screen Negative Ur Barbiturates Screen Negative Ur Phencyclidine Scrn Negative Ur Amphetamine Screen Negative U Benzodiazepines Scrn Negative Urine Cocaine Screen Negative U Cannabinoids Screen Positive A Influenza A (RT-PCR) Influenza B (RT-PCR) RSV (RT-PCR) SARS-CoV-2 RNA (RT-PCR) Procedures/Treatments: None Discharge Plan Discharge Attending physician on discharge: Charles Herrera Consulting providers: Mauri Robles Discharging Clinician: Azeb Darling Anticipated Discharge Date/Time: 04/26/24 15:09 Patient Disposition: Home, Self-Care Activity: as tolerated Diet: as tolerated and heart healthy Discharge Instructions: * You will need to follow up with Dr. Cabello or Dr. Robles in 3 weeks. * Your echocardiogram was essentially normal, you were noted to have some moderate pulmonary hypertension * You were started on Metoprolol 25mg BID for rate control. * You do not need anticoagulation per Cardiology considering your low risk for stroke. * Talk with your primary care doctor or over the road driver about getting set up for an outpatient sleep study to check for sleep apnea. * You were also started on Synthroid 200 mcg daily. Continue to take this medication and follow up with your primary care doctor. Your thyroid stimulating hormone is 12.700 which is a high reading indicating that you have subclinical hypothyroidism. Patient Instructions: Metoprolol (By mouth), Levothyroxine (By mouth), A-fib (Atrial Fibrillation) (DC), Sleep Apnea (GEN), Hypothyroidism (DC) Patient Language: Mongolian Stand Alone Forms: General Discharge Information Follow-up/Referrals: Mauri Robles MD [Physician] - 3 Weeks Discharge Medications: New levothyroxine [Synthroid] 100 mcg Tablet 200 mcg PO DAILY@0630 Qty: 30 3RF metoprolol tartrate 25 mg Tablet 25 mg PO Q12HR Qty: 60 3RF Date of admission: 04/26/24 01:59 Primary Care Provider: EmilySue Admitting Provider: Aminah Ha Attending physician on admission: Azeb Darling Condition: Improved Quality VTE Prophylaxis VTE prophylaxis: pharmacologic ordered Hospitalist MIPS Heart Failure (Exclusion) Patient has history of Heart Transplant or Left Ventricular Assistive Device?: No IF YES, STOP HERE Heart Failure (Qualifier) Patient has current or prior documentation of LVEF less than or equal to 40%, or mod/servere depressed LVSF?: No IF NO, STOP HERE
== END 2024-04-26 17:18 | disposition home or self-care (01) ==
LOC: ANHED 04-26 02:21 → ANHIMU 04-26 03:36
PROVIDERS: Admitting Provider Internal Medicine; Emergency Provider Student in an Organized Health Care Education/Training Program; PCP Pediatrics; Visit Provider Nurse Practitioner Acute Care
DX: I48.0 Paroxysmal atrial fibrillation (principal); I27.20 Pulmonary hypertension, unspecified; E03.9 Hypothyroidism, unspecified; F12.90 Cannabis use, unspecified, uncomplicated; E78.5 Hyperlipidemia, unspecified; M10.9 Gout, unspecified; F17.210 Nicotine dependence, cigarettes, uncomplicated; F17.290 Nicotine dependence, other tobacco product, uncomplicated; Z20.822 Contact with and (suspected) exposure to COVID-19; Z79.899 Other long term (current) drug therapy; Z88.0 Allergy status to penicillin
CPT/HCPCS: 36415; 71045; 80053; 80307; 83690; 83735; 84436; 84443; 84480; 84484; 85025; 85380; 85610; 85730; 87637; 93005; 93306; 96374; 96375; 99285; A9270; J0153; J0282; J7030

== ENCOUNTER 2024-04-30 20:48 | Emergency (ER) | payer OTHER, SELFPAY ==
--- NOTE | ~2024-04-30 | XR_ITS ---
CHEST RADIOGRAPH, PA AND LATERAL CLINICAL HISTORY: chest pain . COMPARISON: 04/26/2024 TECHNIQUE: PA and lateral views of the chest. FINDINGS The cardiomediastinal silhouette is unremarkable. The lungs are clear. Visualized osseous structures and soft tissues are unremarkable. IMPRESSION: No focal infiltrate or effusion. Reviewed, dictated and finalized at location A. WARE DEVELOPMENT TEST ENGINEER
--- OUTSIDE RECORDS SUMMARY | 2024-04-30 20:50 | XMS_ITS | CONTINUITY OF CARE DOCUMENT ---
Author Name lakshmi martins Address Unknown Organization [facility] Office Address [address] [place] [address] [place] [id number] Phone [phone] Care Team Providers Care Liner Replacer Name Role Phone Joe Dhaliwal MD Unavailable [phone] Joe Dhlaiwal MD Unavailable [phone] INSURANCE PROVIDERS Payer name Policy type / Coverage type [place] red constitution party ID [facility] [id number] Other [id number]
--- NOTE | 2024-04-30 20:53 | ECG_ITS ---
Test Date: 2024-04-30 21:02:04 Measurements Intervals [place] Rate: 73 P: 54 DC: 140 QRS: 51 QRSD: 88 T: 14 QT: 376 QTc: 415 Interpretive Statements SINUS RHYTHM WITH SINUS ARRHYTHMIA NONSPECIFIC T-WAVE ABNORMALITY- INF/LAT LEADS BASELINE WANDER- V1-V2, V4 BORDERLINE ECG Compared to ECG 04/26/2024 09:48:23 NO SIGNIFICANT CHANGE Electronically Signed On 05-01-2024 07:06:45 RETURNED MATERIALS INSPECTOR by Arnie Cabello D.O.
[2024-04-30 20:55] VITALS: BP 153/76; PULSE 91; RESP 20; TEMP 37.2; O2SAT 97
--- OUTSIDE RECORDS SUMMARY | 2024-05-01 02:55 | XMS_ITS | CONTINUITY OF CARE DOCUMENT ---
Author Name lakshmi martins Address Unknown Organization [facility] Office Address [address] [place] [address] [place] [address] Phone [phone] Care Team Providers Care Superintendent Seed Mill Name Role Phone Joe Dhaliwal MD Unavailable [phone] Joe Dhaliwal MD Unavailable [phone] INSURANCE PROVIDERS Payer name Policy type / Coverage type [place] red republican ID [facility] [id number] Other [id number]
== END 2024-05-01 03:00 | disposition left against medical advice (07) ==
LOC: ANHED 05-01 02:54
PROVIDERS: Emergency Provider Student in an Organized Health Care Education/Training Program; PCP Pediatrics
DX: R07.89 Other chest pain (principal)
CPT/HCPCS: 71046; 93005; 99199

== ENCOUNTER 2024-05-10 16:19 | Outpatient (CLI) | payer OTHER, SELFPAY ==
--- NOTE | ~2024-05-10 | US_ITS ---
EXAMINATION: US thyroid DATE: 05/10/2024 16:36 INDICATION: Hypothyroidism. TECHNIQUE: Multiple ultrasound images of the thyroid were obtained. COMPARISON: None. FINDINGS: The right thyroid lobe measures 4.2 x 1.2 x 1.5 cm. The left thyroid lobe measures 4.2 x 1.1 x 1.4 c m. There is normal echotexture and echogenicity throughout the thyroid gland. No discrete nodules id entified. Normal vascular flow is present. IMPRESSION: 1. Normal thyroid. Reviewed, dictated and finalized at location A. MP PEELING MACHINE TENDER IMPRESSION: 1. Normal thyroid.
== END 2024-05-10 16:20 | disposition home or self-care (01) ==
LOC: MICIMG 16:23
PROVIDERS: Visit Provider Registered Nurse
DX: E03.9 Hypothyroidism, unspecified (principal)
CPT/HCPCS: 76536